=== PATIENT | male | born 1960 | race African-American/Black ===

== ENCOUNTER 2017-08-27 05:59 | Day surgery (SDC) | payer BC, OTHER ==
--- NOTE | 2017-08-14 19:32 | HP ---
HISTORY AND PHYSICAL: DATE OF ADMISSION/SURGERY: 08/20/[address] Lawton DATE OF OFFICE VISIT: 08/14/17 SURGEON: Dr. Lawton * (DICTATED BY PRISCILA BUSH) PROCEDURE: Right knee patellar tendon repair. CHIEF COMPLAINT: Right knee pain. HISTORY OF PRESENT ILLNESS: Inderjit went into [employer] on his break on 08/13/17 and slipped on some cardboard on the floor inside the store. He instantly felt pain and needed assistance rising from the floor. After this injury, he drove himself to meet his and then to the hospital. X-rays there showed a ruptured patellar tendon. He has taken one dose of 800 mg ibuprofen and has been using ice on his knee. He was discharged from the ER in an immobilization brace. Inderjit does have a history of patellar tendon rupture on his left knee, which occurred when he was playing basketball in 2001. His surgery at that point was done by Dr. Avila. PAST MEDICAL HISTORY: Significant for arthritis. He denies any history of DVT or pulmonary embolism. PAST SURGICAL HISTORY: Left patellar tendon tear around March of 2002. MEDICATIONS: 1. Multivitamin. 2. Flaxseed oil. 3. Horse chestnut. 4. Turmeric. 5. Glucosamine and chondroitin. ALLERGIES: No known drug allergies. He denies allergy to latex or tape. FAMILY MEDICAL HISTORY: Significant for heart disease in his father and cancer in his mother. SOCIAL HISTORY: He lives with his spouse and has to walk up 3 stairs to enter his home. 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 He is a never smoker. He drinks alcohol intermittently. He denies any illicit drug use. He exercises regularly and prefers weights and cycling. His dominant hand is his right hand. REVIEW OF SYSTEMS: Positive for chronic back pain and a previous fracture, as well as seasonal allergies. He denies any fevers, chills, night sweats, blurry or double vision, sore throat, runny nose, nosebleeds, hearing changes, chest pains, heart palpitations, shortness of breath, cough, nausea, vomiting, diarrhea, constipation, urinary tract infections, kidney stone, neuropathy, weakness, rashes or lesions, weight loss, weight gain, fatigue, easy bleeding or bruising, hay fever, depression, or anxiety. PHYSICAL EXAMINATION VITAL SIGNS: Height 6 feet 5 inches, weight 300 pounds, pulse 78, respirations 18, temperature 97.3. Pain level 3/10. BMI of 36.5. GENERAL: He is a well-developed, well-nourished 56-year-old man in no acute distress. Alert and oriented x3. No gross neurologic deficiencies, ambulating with crutches and not placing weight on his right leg, which is in a brace. HEENT: Normocephalic, atraumatic. Pupils are equally round and reactive to light and accommodation. Extraocular movements intact. NECK: Supple. He has no palpable cervical lymph nodes. His thyroid is smooth and nontender. PULMONARY: Lungs are clear to auscultation bilaterally with no wheezes, rhonchi , or rales. CARDIAC: Regular rate and rhythm. No murmurs, rubs, or gallops. No pedal edema. Pedal pulses are intact bilaterally. ABDOMEN: Soft, nontender. NEUROLOGIC: Sensation is intact to light touch bilaterally. Cranial nerves II through XII are grossly intact. MUSCULOSKELETAL: His right knee is very swollen and his patella is superior to normal alignment. He is nontender on his tibial plateau or his lateral joint line. The patient has full extension of his right leg. STUDIES: X-ray from [facility] reviewed, which showed a right patellar tendon rupture with avulsion fracture of his tibial tuberosity. IMPRESSION: Right patellar tendon rupture. PLAN: Inderjit Zaldivar is scheduled to undergo right knee patellar tendon repair with Dr. Lawton on 08/20/17. He will return to clinic in 7 to 10 days postop for followup and suture removal. Prescription for Percocet was e- scribed to the patient's pharmacy or record for postoperative pain management. I-STOP was checked prior sending the script. PRISCILA BUSH [id number]/[facility] #: [id number] SHAMAR
[~2017-08-27 05:59] MED LIST: Buffered Lidocaine 0.9% SYRIN* 5 ML/SYR SYRINGE INTRADERM ONE; Dexamethasone IV* 4 MG/ML 1 ML (4 MG) IV SLOW PU ONE
[2017-08-27] MEDS ORDERED: Famotidine IV* 10 MG/ML 2 ML (20 mg) ONE (06:09)
[2017-08-27] MEDS ORDERED: Dexamethasone IV* 4 MG/ML 5 ML VIAL (20 MG) ONE (06:09)
[2017-08-27] MEDS ORDERED: ceFAZolin 2 GM PREMIX (*) 2 GM/50 ML BAG IVPB ONE (06:10)
[2017-08-27] MEDS: Famotidine IV* 10 MG/ML 2 ML (20 mg) IV ONE ×2 (06:33→06:35)
[2017-08-27] MEDS ORDERED: Lidocaine 1% MPF wEPI 200,000* 30 ML SDV ONE (07:15)
[2017-08-27] MEDS ORDERED: Bupivacaine 0.25% SDV* 30 ML ONE (07:15)
[2017-08-27] MEDS ORDERED: fentaNYL* 50 MCG/ML 2 ML VIAL (100 MCG VIAL) ONE (07:18)
[2017-08-27] MEDS ORDERED: Midazolam* 1 MG/ML 5 ML VIAL (5 MG) ONE (07:18)
[2017-08-27] MEDS ORDERED: ceFAZolin 1 GM ADVAN(*) 1 GM ADDV.VIAL IVPB ONE (07:22)
[2017-08-27] MEDS ORDERED: ROPIVACAINE 5 MG/ML 30 ML BTL (0.5%) ONE (08:08)
[2017-08-27] MEDS ORDERED: Bupivacaine 0.5% SDV PF* 30 ML VIAL ONE (08:08)
[2017-08-27] MEDS ORDERED: Propofol* 10 MG/ML 20 ML BTL IV PUSH ONE (08:08)
[2017-08-27] MEDS ORDERED: oxyCODONE TAB* 5 MG TAB PO PRN (09:27)
[2017-08-27] MEDS ORDERED: Acetaminophen TAB* 325 MG PO PRN (09:27)
[2017-08-27] MEDS ORDERED: Ibuprofen TAB* 600 MG PO PRN (09:27)
[2017-08-27] MEDS ORDERED: Ondansetron INJ* 2 MG/ML VIAL IV PRN (09:27)
[2017-08-27] MEDS ORDERED: HYDROmorphone INJ* 1 MG/ML CARPUJECT SYRINGE ONE (12:40)
[2017-08-27] MEDS: HYDROmorphone INJ* 1 MG/ML CARPUJECT SYRINGE IV PRN ×2 (12:41→12:59)
[2017-08-27] MEDS ORDERED: oxyCODONE TAB* 5 MG TAB ONE (12:44)
[2017-08-27] MEDS ORDERED: Ibuprofen TAB* 600 MG ONE (12:47)
[2017-08-27 14:40] VITALS: BP 161/94
--- NOTE | 2017-08-29 10:43 | OP ---
CC: PCP OPERATIVE REPORT: DATE OF OPERATION: 08/27/17 DATE OF : 58 SURGEON: Kelly Lawton MD ASSISTANTS: PRISCILA Gonzales and PRISCILA Ortiz. ANESTHESIOLOGIST: Dr. Yoselyn Hairston. ANESTHESIA: Spinal with local MAC and regional block. PRE-OP DIAGNOSIS: Right patellar tendon rupture with inferior pole fracture. POST-OP DIAGNOSIS: Right patellar tendon rupture with inferior pole fracture. OPERATIVE PROCEDURES: Right knee open patellar tendon repair and removal of loose body. COMPLICATIONS: None. ESTIMATED BLOOD LOSS: Minimal. TOURNIQUET TIME: 0 minutes. IMPLANTS USED: None. INDICATIONS: Zen is a 56-year-old male who on 08/13/17 slipped and fell and he was unable to ex tend his leg and went to the ER, was diagnosed with possible patellar tendon rupture. He has a previ ous history of a left-sided patella tendon rupture that was [place] [address] Avila, which he did w ell from. Risks and benefits of surgery were discussed at length to include but are not limited to b leeding, infection, damage to nerves, vessels, surrounding structures, wound nonhealing, persistent p ain, need for surgery, scarring, stiffness, incomplete relief of symptoms, risk of anesthesia. DESCRIPTION OF PROCEDURE: The patient was greeted in the preoperative area by the attending surgeon. Correct extremity was marked, consent was confirmed. The patient was brought back to the operating suite where he was placed in the supine position on the operating table. He then underwent a region al nerve block and then he underwent spinal anesthesia after which the right leg was prepped and drap ed in usual sterile fashion beginning with chlorhexidine soap, scrub and alcohol wipe and a final pre p with ChloraPrep. After appropriate surgical pause indicating side, site, position and administration of antibiotics, t he midline incision over the patella and patellar tendon was made. The soft tissues were carefully di ssected. The patellar tendon was obviously torn and avulsed off the inferior pole. There was a smal l fragment still attached to the inferior pole and demonstrated shear type of injury. There was a sm all lose body that was present that was more laterally based. The inferior pole of the patellar tend on was identified and carefully rongeured and prepared to allow for a good bony bleeding bed. The #5 Ethibond suture was placed in a Krackow fashion; two were used to allow for 4 tails encompassing the patellar tendon, had a good grasp on. The patella as well as the trochlea had grade 1 to 2 changes. The knee was thoroughly lavaged. Excess scar that was carefully removed to allow for a good mobili zation of the actual tendon itself. Once the tendon was prepared itself and the bony block was prepa red, a 2.0 drill bit was used to drill 3 pins off, that tunneled through the patella beginning inferi or to superior portion. The stitches were then passed to reach tunnel and then carefully passed in u nder the quad tendon to be sewn together with the knee in extension. This will allow for islam . Preoperative templating demonstrated where the corrected contralateral knee cap was in regards to p atellar height and attempt was made to try to make this symmetric. Once the sutures had been tied oswaldo n the remainder of the capsule and paratenon were then carefully closed with 0-Vicryl. The excess sm all bony avulsed piece was identified and then felt not to be removed. The wounds were copiously irr igated. The deep fascia were closed with 0-Vicryl, the subcutaneous tissues with 2-0 Vicryl and the s kin with vanna. The knee was then injected with 0.25% Marcaine plain. Sterile dressings were appli ed. The knee was placed in a hinged knee brace, locked in extension. He was awoken from anesthesia and transferred to PACU in stable condition. POSTOPERATIVE PLAN: He will be weightbearing as tolerated once his block wears off. He will be allo wed ankle pump and he will require crutches. He will not be working on range of motion until he is 3 weeks postop. I will see the patient back in 10 to 14 days. He will be discharged on pain medicati on and antibiotics. [id number]/[facility] #: [id number]
== END 2017-08-27 14:15 | disposition home or self-care (01) ==
LOC: OR 05:59
PROVIDERS: ATTEND Orthopaedic Surgery
DX: S76.111A Strain of right quadriceps muscle, fascia and tendon, initial encounter (principal); W01.0XXA Fall on same level from slipping, tripping and stumbling without subsequent striking against object, initial encounter; Y92.512 Supermarket, store or market as the place of occurrence of the external cause; M19.90 Unspecified osteoarthritis, unspecified site
CPT/HCPCS: A9270-GY; J0690; J1100; J1170; J2001; J2250; J2704; J2795; J3010

== ENCOUNTER 2017-12-17 12:27 | Day surgery (SDC) | payer OTHER ==
--- NOTE | 2017-12-12 19:51 | HP ---
HISTORY AND PHYSICAL: DATE OF ADMISSION/SURGERY: 12/17/17 DATE OF OFFICE VISIT: 12/12/17 SURGEON: Kelly Lwaton MD * (DICTATED BY PRISCILA HFOFMAN) PROCEDURE: Right knee manipulation under anesthesia. CHIEF COMPLAINT: Right knee pain. HISTORY OF PRESENT ILLNESS: Mr. Zaldivar is a 57-year-old gentleman, who underwent patellar tendon repair back on 08/27/17. He continues to have significant stiffness of his right knee and his range of motion is 0 to 50 degrees despite extensive physical therapy, so elected to proceed with the manipulation under anesthesia which is scheduled on 12/17/[address] Lawton. PAST MEDICAL HISTORY: Denies. PAST SURGICAL HISTORY: Right knee patellar tendon repair, left knee patellar tendon repair 20 years ago; tonsillectomy. CURRENT MEDICATIONS: 1. Multivitamin. 2. Flaxseed oil. 3. Turmeric. ALLERGIES: None. FAMILY HISTORY: Cancer and coronary artery disease. SOCIAL HISTORY: He is a 57-year-old gentleman, lives with his . He does not smoke or use drugs. Drinks alcohol rarely. REVIEW OF SYSTEMS: A complete 14-point review of systems was reviewed with the patient, was all negative and noncontributory. PHYSICAL EXAMINATION GENERAL: He is well developed, well nourished, in no acute distress. VITAL SIGNS: He stands 76 inches tall, weighs 315 pounds. His blood pressure is 120/74. HEENT: Normocephalic, atraumatic. NECK: Supple. No palpable lymph nodes. PULMONARY: The lungs are clear to auscultation bilaterally. CARDIO: Regular rate and rhythm. Strong S1, S2. ABDOMEN: Soft, nontender, and nondistended. MUSCULOSKELETAL: Right lower extremity, his skin is intact. There are no open wounds or abrasions. There is a large amount of scar tissue with poor patellar mobility. His range of motion is 0 to 50 degrees. The calf is soft and nontender and he is distally neurovascularly intact. NEUROLOGICAL: He is alert and oriented x3. Cranial nerves II through XII are intact. ASSESSMENT AND PLAN: Mr. Zaldivar is a 57-year-old gentleman with stiffness of his right knee following a patellar tendon repair on 08/27/17. Despite conservative treatment and extensive physical therapy, his range of motion has failed to progress and he has elected to proceed with manipulation under anesthesia, which is scheduled for 12/17/[address] Lawton. LUPE CEDEÑO, PRISCILA [id number]/[facility] #: [id number] SHAMAR
[~2017-12-17 12:27] MED LIST changes: +Dexamethasone IV* 4 MG/ML 1 ML (4 MG) ONE; +Famotidine IV* 10 MG/ML 2 ML (20 mg) IV ONE; +Famotidine IV* 10 MG/ML 2 ML (20 mg) ONE; +ceFAZolin 1 GM in Dextrose (*) 1 GM/50 ML BAG IVPB ONE; +ceFAZolin 2 GM in 100 MLS NS (*) BAG IVPB ONE
[2017-12-17] MEDS ORDERED: fentaNYL* 50 MCG/ML 2 ML VIAL (100 MCG VIAL) ONE (13:47)
[2017-12-17] MEDS ORDERED: Midazolam* 1 MG/ML 5 ML VIAL (5 MG) ONE (13:47)
[2017-12-17] MEDS ORDERED: Propofol* 10 MG/ML 20 ML BTL IV PUSH ONE (13:51)
[2017-12-17] MEDS ORDERED: Lidocaine 2% PF * 5 ML VIAL ONE (13:51)
[2017-12-17] MEDS ORDERED: Ketorolac INJ* 30 MG/ML 1 ML VIAL ONE (14:07)
[2017-12-17] MEDS ORDERED: Ondansetron INJ* 2 MG/ML VIAL ONE (14:17)
[2017-12-17] MEDS ORDERED: Naloxone* 0.4 MG/ML 1 ML VIAL IV PRN (15:11)
[2017-12-17] MEDS ORDERED: fentaNYL* 50 MCG/ML 2 ML VIAL (100 MCG VIAL) IV PRN (15:11)
[2017-12-17] MEDS ORDERED: HYDROcodone/ACETAMIN 5-325 MG* 1 TAB PO PRN (15:11)
[2017-12-17] MEDS ORDERED: oxyCODONE/Acetamin 5/325 MG* TAB PO PRN (15:11)
[2017-12-17] MEDS ORDERED: PROCHLORPERAZINE INJ 5 MG/ML 2 ML VIAL IV PRN (15:11)
[2017-12-17 15:43] VITALS: BP 125/95
--- NOTE | 2017-12-17 22:01 | RAD ---
INDICATION: Right knee manipulation under anesthesia. COMPARISON: Comparison is made with a prior x-ray study of the right knee from August 13, 2017. TECHNIQUE: 3.3 seconds of intermittent fluoroscopic guidance were provided and 2 spot films of the right knee were obtained in the operating room. FINDINGS: AP and lateral spot images of the right knee were obtained in the operating room. IMPRESSION: INTRAOPERATIVE CONTROL FILMS. CPT II Codes: 6045F
--- NOTE | 2017-12-18 13:50 | OP ---
OPERATIVE REPORT: DATE OF OPERATION: 12/17/17 DATE OF : 58 SURGEON: Kelly Lawton MD. CHILD CARE CENTRE DIRECTOR: PRISCILA Lazaro An assistant spa director was necessary for this case to help with positioning and doing the actual manual reducti on for this case. ANESTHESIOLOGIST: Dr. Anand. ANESTHESIA: General. PRE-OP DIAGNOSIS: Right knee ankylosis, status post patellar tendon repair. POST-OP DIAGNOSIS: Right knee ankylosis, status post patellar tendon repair. OPERATIVE PROCEDURE: Right knee manipulation under anesthesia. COMPLICATIONS: None. ESTIMATED BLOOD LOSS: None. INDICATIONS: Inderjit Zaldivar is a 57-year-old male who underwent patellar tendon repair on 7. He had significant stiffness. He was unable to flex past 50 degrees in spite of conservative man agement. Risks and benefits of surgery were discussed at length including but not limited to bleedin g, infection, damage to nerves, vessels, surrounding structures, fracture, need for further surgery, persistent pain, incomplete relief of symptoms, need for further manipulation, risks of DVT and risks of anesthesia. He has elected to proceed. DESCRIPTION OF PROCEDURE: The patient was greeted in the preoperative area by the attending surgeon. Correct extremity was marked and consent was confirmed. The patient was brought back to the operat ing suite, where he was placed in a supine position on the operating room table. He then underwent g eneral anesthesia and LMA intubation after which the patient was appropriately positioned. After jose eduardo ropriate surgical pause indicating site, side, procedure, and no need for antibiotics, a manipulation of the knee was done. Preoperative range of motion was 0 to about 50 degrees with gentle hip flexio n and about 60 degrees with the hip placed in 90 degrees of flexion and gravity. Preoperative photos were taken. After a manual manipulation, we were able to flex him to approximately 120 to 125 degre es. This was confirmed with images both with the hip gently flexed and the hip at 90 degrees flexed. The knee was able to be flexed to at least 120 degrees. At this point, x- ray was taken to make jackson re that there is no fracture due to the manipulation. The patient was then awoken from anesthesia an d transferred to PACU in stable condition. POSTOPERATIVE PLAN: He will be weightbearing as tolerated. He will be back in his brace. He will s tart physical therapy again tomorrow. He is supposed to work on range of motion. I will follow him closely. He will be discharged with pain medication. [id number]/[facility] #: [id number]
== END 2017-12-17 15:44 | disposition home or self-care (01) ==
LOC: OR 12:27
PROVIDERS: ATTEND Orthopaedic Surgery
DX: M24.661 Ankylosis, right knee (principal)
CPT/HCPCS: J0690; J1100; J1885; J2250; J2405; J2704; J3010